=== PATIENT | male | born 1970 | race American Indian/Alaskan Native ===

== ENCOUNTER 2017-12-11 09:06 | Emergency (ER) | payer SELFPAY ==
[2017-12-11 09:47] VITALS: BP 141/80
--- NOTE | 2017-12-11 11:30 | Emergency Department Report ---
ED Extremity Problem HPI - General Chief complaint: Extremity Injury, Lower Stated complaint: FOOT SWELLING/PAIN Time Seen by Provider: 12/11/17 11:20 Source: patient Mode of arrival: Ambulatory Limitations: No Limitations - History of Present Illness Initial comments: This is a 47-year-old male here report that he has a cut flareup to his left foot is having pain and swelling for the last 2 days. Patient said he has a history of same. He is eating over the last 3 days red beans, pizza, beer and some seafood. Pain is 9 out of 10 in a can, throbbing. Reports some redness to the his great toe. Pain is constant. No alleviating factors. MD Complaint: extremity pain, extremity swelling Onset/Timin -: days(s) Location: left, lower extremity (left foot) History of Same: Yes -: No myalgia, Yes arthralgia, No fever, No associated dyspnea, No associated chest pain Severity scale (0 -10): 9 Quality: aching, constant, other (throbbing) Consistency: constant Improves with: nothing Worsens with: weight bearing, walking, exertion, palpation Associated Symptoms: arthralgias. denies: chest pain, shortness of breath, fever, myalgias, rash - Related Data Previous Rx's Medication Instructions Recorded Last Taken Type Acetaminophen/Codeine [Tylenol 1 tab PO Q6H PRN #14 tab 12/11/17 Unknown Rx /Codeine # 3 tab] Colchicine 0.6 mg PO BID PRN #12 tablet 12/11/17 Unknown Rx Ibuprofen [Motrin] 800 mg PO Q8HR PRN #15 tablet 12/11/17 Unknown Rx methylPREDNISolone [Medrol Dose 4 mg PO DAILY #1 tab.ds.pk 12/11/17 Unknown Rx Tristen] Allergies Allergy/AdvReac Type Severity Reaction Status Date / Time No Known Allergies Allergy Unverified 12/11/17 09:45 ED Review of Systems ROS: Stated complaint: FOOT SWELLING/PAIN Other details as noted in HPI Comment: All other systems reviewed and negative Constitutional: denies: chills, fever ENT: denies: ear pain, throat pain, epistaxis, congestion Respiratory: denies: cough, shortness of breath, SOB with exertion, SOB at rest , stridor, wheezing Cardiovascular: denies: chest pain, palpitations, dyspnea on exertion, edema, syncope, paroxysmal nocturnal dyspnea Gastrointestinal: denies: abdominal pain, nausea, vomiting Genitourinary: denies: hematuria Musculoskeletal: joint swelling, arthralgia. denies: back pain, myalgia Skin: denies: rash Neurological: denies: headache, weakness, numbness, paresthesias, confusion, abnormal gait, vertigo ED Past Medical Hx - Past Medical History Previous Medical History?: Yes Additional medical history: gout - Surgical History Past Surgical History?: No - Family History Family history: hypertension - Social History Smoking Status: Never Smoker Substance Use Type: None - Medications Home Medications: Home Medications Medication Instructions Recorded Confirmed Last Taken Type Acetaminophen/Codeine [Tylenol 1 tab PO Q6H PRN #14 tab 12/11/17 Unknown Rx /Codeine # 3 tab] Colchicine 0.6 mg PO BID PRN #12 tablet 12/11/17 Unknown Rx Ibuprofen [Motrin] 800 mg PO Q8HR PRN #15 tablet 12/11/17 Unknown Rx methylPREDNISolone [Medrol Dose 4 mg PO DAILY #1 tab.ds.pk 12/11/17 Unknown Rx Tristen] ED Physical Exam - General Limitations: No Limitations General appearance: alert, in no apparent distress - Head Head exam: Present: atraumatic, normocephalic, normal inspection - Expanded Head Exam Expanded Head exam: Absent: laceration, abrasion, contusion, hematoma, racoon eyes, cast's sign, general tenderness, tenderness of temporal artery, CSF rhinorrhea , CSF otorrhea - Eye Eye exam: Present: normal appearance, PERRL, EOMI. Absent: nystagmus, periorbital swelling, periorbital tenderness Pupils: Present: normal accommodation - ENT ENT exam: Present: normal exam, normal orophraynx, mucous membranes moist, TM's normal bilaterally, normal external ear exam - Neck Neck exam: Present: normal inspection, full ROM, other (no C-spine tenderness). Absent: tenderness, lymphadenopathy - Respiratory Respiratory exam: Present: normal lung sounds bilaterally. Absent: respiratory distress, chest wall tenderness - Cardiovascular Cardiovascular Exam: Present: regular rate, normal rhythm, normal heart sounds. Absent: systolic murmur, diastolic murmur - GI/Abdominal GI/Abdominal exam: Present: soft, normal bowel sounds. Absent: distended, tenderness, guarding, rebound, rigid, organomegaly - Extremities Exam Extremities exam: Present: normal inspection, full ROM, normal capillary refill , other. Absent: tenderness, pedal edema, joint swelling, calf tenderness - Expanded Lower Extremity Exam Left Hip exam: Present: normal inspection, full ROM, pelvic stability. Absent: tenderness, swelling, abrasion, laceration, ecchymosis, deformity, crepidus, dislocation, erythema, external rotation, internal rotation, shortening Upper Leg exam: Present: normal inspection, full ROM. Absent: tenderness, swelling, abrasion, laceration, ecchymosis, deformity, crepidus, dislocation, erythema Knee exam: Present: normal inspection, full ROM, full knee extension. Absent: tenderness, swelling, abrasion, laceration, ecchymosis, deformity, crepidus, dislocation, erythema, effusion, pain w/ pronation/supination, posterior draw sign, pain/laxity with valgus, pain/laxity with varus Lower Leg exam: Present: normal inspection, full ROM. Absent: tenderness, swelling, abrasion, laceration, ecchymosis, deformity, crepidus, dislocation, erythema, palpable cord, Adiel's sign Ankle exam: Present: normal inspection, full ROM. Absent: tenderness, swelling , abrasion, laceration, ecchymosis, deformity, crepidus, dislocation, erythema, anterior draw sign Foot/Toe exam: Present: full ROM (full range of motion but pain with dorsiflexion and plantar flexion), tenderness (tender to palpate dorsal aspects first defect in the distal metatarsal bone area), swelling, erythema (distal metatarsal bone first second and third metatarsal). Absent: normal inspection, abrasion, laceration, ecchymosis, deformity, crepidus, dislocation, amputation, puncture wound, foreign body, calcaneal tenderness, tenderness at base of 5th metatarsal, nail avulsion, subungual hematoma Neuro vascular tendon exam: Present: no vascular compromise, significant pain with passive ROM of distal joint. Absent: pulse deficit, abnormal cap refill, motor deficit, sensory deficit, tendon deficit, extremity cold to touch, pallor , abnormal 2-point discrimination, decreased fine/light touch, foot drop, peroneal nerve deficit Gait: Positive: observed and limited by pain - Back Exam Back exam: Present: normal inspection, full ROM, other (ambulates without any difficulties). Absent: tenderness, CVA tenderness (R), CVA tenderness (L), muscle spasm, paraspinal tenderness, vertebral tenderness, rash noted - Neurological Exam Neurological exam: Present: alert, oriented X3, normal gait, reflexes normal. Absent: motor sensory deficit - Psychiatric Psychiatric exam: Present: normal affect, normal mood - Skin Skin exam: Present: warm, dry, intact, normal color. Absent: rash ED Course Vital Signs 12/11/17 09:46 Temperature 99.1 F Pulse Rate 80 Respiratory 18 Rate Blood Pressure 141/80 O2 Sat by Pulse 98 Oximetry - Reevaluation(s) Reevaluation #1: 12/11/17 11:42 Patient received Decadron 10 mg IM and Toradol 60 mg IM in emergency room for pain. ED Medical Decision Making - Medical Decision Making This is a 47-year-old male here for gout flareup due eating high purine food over the weekend. This patient was seen and examined by myself and physical exam is normal except he has left foot tenderness, erythema and painful with weightbearing to first second and third metatarsal bone area distally. He is able to ambulate without any difficulties. Patient has classic signs of gout flareup due to eat and seafood, drinking beer and pizza over the weekend. I gave the patient Decadron 10 mg IM and Toradol 60 mg IM in emergency room and upper reevaluation he says his pain is better. I discussed with patient the consequences of eating high purine food. He voiced understanding. Patient vital signs stable afebrile and discharged home in stable condition with prescription for colchicine, Motrin, prednisone Dosepak and Tylenol 3. Critical care attestation.: If time is entered above; I have spent that time in minutes in the direct care of this critically ill patient, excluding procedure time. ED Disposition Clinical Impression: Gout attack Qualifiers: Gout site: foot Gout etiology: unspecified cause Laterality: left Qualified Code(s): M10.9 - Gout, unspecified Disposition: TO HOME OR SELFCARE Is pt being admited?: No Does the pt Need Aspirin: No Condition: Stable Instructions: Acute Gouty Arthritis (ED), Low Purine Diet (ED) Additional Instructions: Please follow up with primary care as recommended Increase fluid intake Take medication as prescribed . please do not drive or operate heavy machinery while taking Tylenol No. 3 as this medication causes drowsiness See discharge instruction on low Purine diet Referrals: PRIMARY CARE, [Primary Care Provider] - 2-3 Days Forms: Work/School Release Form(ED)
[2017-12-11] MEDS ORDERED: COLCHICINE PO ONE (11:31)
[2017-12-11] MEDS ORDERED: DECADRON IM ONE (11:31)
[2017-12-11] MEDS ORDERED: TORADOL IM ONE (11:31)
== END 2017-12-11 12:19 | disposition home or self-care (01) ==
LOC: ED 09:06
DX: M10.9 Gout, unspecified (principal)
CPT/HCPCS: 96372; 99282; J1100; J1885

== ENCOUNTER 2021-08-12 03:28 | Emergency (ER) | payer OTHER ==
[2021-08-12 03:57] LABS: Basophils # (Auto) 0.1 K/mm3 (0.0-0.1); Basophils % (Auto) 0.7 % (0.0-1.8); Eosinophils # (Auto) 0.1 K/mm3 (0.0-0.4); Eosinophils % (Auto) 1.1 % (0.0-4.3); Hematocrit 40.4 % (35.5-45.6); Hemoglobin 13.5 gm/dl (11.8-15.2); Lymphocytes # (Auto) 3.1 K/mm3 (1.2-5.4); Lymphocytes % (Auto) 37.5 % (13.4-35.0); Mean Corpuscular HGB Conc 33 % (32-34); Mean Corpuscular Volume 89 fl (84-94); Monocytes # (Auto) 0.8 K/mm3 (0.0-0.8); Monocytes % (Auto) 10.3 % (0.0-7.3); Platelet Count 355 K/mm3 (140-440); Red Blood Count 4.55 M/mm3 (3.65-5.03); Red Cell Distribution Width 13.8 % (13.2-15.2)
[2021-08-12 04:20] LABS: Alanine Aminotransferase 40 units/L (7-56); Albumin 4.9 g/dL (3.9-5); BUN/Creatinine Ratio 14; Blood Urea Nitrogen 13 mg/dL (9-20); Calcium 9.6 mg/dL (8.4-10.2); Hemolysis Index 5
[2021-08-12 05:26] LABS: Bilirubin,Urine NEG (Negative); Blood,Urine SM (Negative); Color,Urine Yellow (Yellow); Mucus,Urine 1+ /HPF; Protein,Urine <15 mg/dL mg/dL (Negative); Urobilinogen,Urine < 2.0 mg/dL (<2.0)
[2021-08-12] MEDS ORDERED: KETOROLAC 30 MG/1 ML INJ IM ONE (05:41)
[2021-08-12] MEDS ORDERED: dexAMETHasone 20 MG/5 ML VIAL IM ONE (05:41)
[2021-08-12] MEDS ORDERED: diazePAM 5 MG TAB PO ONE (05:41)
--- NOTE | 2021-08-12 06:03 | Emergency Department Report ---
ED Back Pain/Injury HPI - General Chief Complaint: Back Pain/Injury Stated Complaint: BACK PAIN ON LT SIDE Source: patient Limitations: No Limitations - History of Present Illness Initial Comments: Patient is a 51-year-old -[place] male with past medical history of gout who presents to the ED with complaint of acute onset persistent nontraumatic low back pain for the last 1 week. Patient states that he has been taking [id number] medications with no relief. Patient states that the pain is especially worse with movement or when he lays down. Patient denies dysuria, urinary frequency and urgency, hematuria, traumatic injury, heavy lifting, fall, numbness and tingling or weakness of lower extremities bilaterally, fever, chills, abdominal pain, nausea and vomiting or diarrhea. MD Complaint: back pain (Low back pain) -: Sudden, week(s) (1) Similar Symptoms Previously: No Place: home Radiation: none Severity: severe Severity scale (0 -10): 7 Quality: sharp, aching Consistency: constant Improves With: none Worsens With: movement, walking Context: unknown Associated Symptoms: denies other symptoms. denies: confusion, weakness, chest pain, numbness, difficulty walking, difficulty urinating, diaphoresis, incontinence, fever/chills, constipation, headaches, abdominal pain, loss of appetite, malaise, nausea/vomiting, rash, seizure, shortness of breath, syncope - Related Data Previous Rx's Medication Instructions Recorded Last Taken Type Acetaminophen/Codeine [Tylenol 1 tab PO Q6H PRN #14 tab 12/11/17 Unknown Rx /Codeine # 3 tab] Colchicine 0.6 mg PO BID PRN #12 tablet 12/11/17 Unknown Rx Ibuprofen [Motrin] 800 mg PO Q8HR PRN #15 tablet 12/11/17 Unknown Rx methylPREDNISolone [Medrol Dose 4 mg PO DAILY #1 tab.ds.pk 12/11/17 Unknown Rx Tristen] Ibuprofen [Motrin] 800 mg PO Q8HR PRN #30 tablet 08/12/21 Unknown Rx methOCARBAMOL [Robaxin TAB] 750 mg PO Q8H PRN #30 tab 08/12/21 Unknown Rx Allergies Allergy/AdvReac Type Severity Reaction Status Date / Time No Known Allergies Allergy Unverified 12/11/17 09:45 ED Review of Systems ROS: Stated complaint: BACK PAIN ON LT SIDE Other details as noted in HPI Constitutional: denies: chills, fever Eyes: denies: eye pain, eye discharge, vision change ENT: denies: ear pain, throat pain Respiratory: denies: cough, shortness of breath, wheezing Cardiovascular: denies: chest pain, palpitations Endocrine: no symptoms reported Gastrointestinal: denies: abdominal pain, nausea, diarrhea Genitourinary: denies: urgency, dysuria Musculoskeletal: back pain (Low back pain). denies: joint swelling, arthralgia Skin: denies: rash, lesions Neurological: denies: headache, weakness, paresthesias Psychiatric: denies: anxiety, depression Hematological/Lymphatic: denies: easy bleeding, easy bruising ED Past Medical Hx - Past Medical History Additional medical history: gout - Social History Smoking Status: Never Smoker Substance Use Type: None - Medications Home Medications: Home Medications Medication Instructions Recorded Confirmed Last Taken Type Acetaminophen/Codeine [Tylenol 1 tab PO Q6H PRN #14 tab 12/11/17 Unknown Rx /Codeine # 3 tab] Colchicine 0.6 mg PO BID PRN #12 tablet 12/11/17 Unknown Rx Ibuprofen [Motrin] 800 mg PO Q8HR PRN #15 tablet 12/11/17 Unknown Rx methylPREDNISolone [Medrol Dose 4 mg PO DAILY #1 tab.ds.pk 12/11/17 Unknown Rx Tristen] Ibuprofen [Motrin] 800 mg PO Q8HR PRN #30 tablet 08/12/21 Unknown Rx methOCARBAMOL [Robaxin TAB] 750 mg PO Q8H PRN #30 tab 08/12/21 Unknown Rx ED Physical Exam - General Limitations: No Limitations General appearance: alert, in no apparent distress - Head Head exam: Present: atraumatic, normocephalic, normal inspection - Eye Eye exam: Present: normal appearance, PERRL, EOMI Pupils: Present: normal accommodation - ENT ENT exam: Present: normal exam, normal orophraynx, mucous membranes moist, TM's normal bilaterally, normal external ear exam - Neck Neck exam: Present: normal inspection, full ROM. Absent: tenderness - Respiratory Respiratory exam: Present: normal lung sounds bilaterally. Absent: respiratory distress, wheezes, rales, rhonchi, chest wall tenderness, accessory muscle use, decreased breath sounds, prolonged expiratory - Cardiovascular Cardiovascular Exam: Present: regular rate, normal rhythm, normal heart sounds. Absent: systolic murmur, diastolic murmur, rubs, gallop - GI/Abdominal GI/Abdominal exam: Present: soft, normal bowel sounds. Absent: tenderness, guarding, rebound, hyperactive bowel sounds, hypoactive bowel sounds, organomegaly - Extremities Exam Extremities exam: Present: normal inspection, full ROM, normal capillary refill. Absent: tenderness, pedal edema, joint swelling, calf tenderness - Back Exam Back exam: Present: normal inspection, full ROM, tenderness (Palpable lumbosacral paraspinal musculoskeletal tenderness), muscle spasm, paraspinal tenderness. Absent: CVA tenderness (R), CVA tenderness (L), vertebral tenderness - Neurological Exam Neurological exam: Present: alert, oriented X3, CN II-XII intact, normal gait, reflexes normal - Psychiatric Psychiatric exam: Present: normal affect, normal mood - Skin Skin exam: Present: warm, dry, intact, normal color. Absent: rash ED Course Vital Signs 08/12/21 03:32 Temperature 98.6 F Pulse Rate 92 H Respiratory 18 Rate Blood Pressure 174/87 O2 Sat by Pulse 96 Oximetry ED Medical Decision Making - Lab Data Result diagrams: 08/12/21 03:44 08/12/21 03:44 - Medical Decision Making This is a 51-year-old -[place] male with past medical history of gout who presents to the ED with complaint of acute onset persistent nontraumatic low back pain for the last 1 week. Patient states that he has been taking [id number] medications with no relief. Patient states that the pain is especially worse with movement or when he lays down. In the ED, patient is alert and oriented x3 and is not in any distress. Patient is hemodynamically stable. Lab test results were reviewed and are all nonactionable. Patient was treated for pain in the ED and observed. On reevaluation, patient's pain is well controlled medication. Patient symptoms are likely musculoskeletal. Patient was therefore discharged home on medications for pain and advised to follow-up with his primary care physician in 7 to 10 days for reevaluation or return to the ED immediately if symptoms get worse. - Differential Diagnosis Muscle spasm; muscle strain; Critical care attestation.: If time is entered above; I have spent that time in minutes in the direct care of this critically ill patient, excluding procedure time. ED Disposition Clinical Impression: Spasm of muscle of lower back, Strain of muscle, fascia and tendon of lower back, initial encounter Acute low back pain without sciatica Qualifiers: Back pain laterality: unspecified Qualified Code(s): M54.50 - Low back pain, unspecified Disposition: HOME / SELF CARE / HOMELESS Is pt being admited?: No Does the pt Need Aspirin: No Condition: Stable Instructions: Muscle Cramps and Spasms, [id number], Muscle Strain, [id number], Low Back Sprain or Strain Rehab-SportsMed Additional Instructions: Lab test results were reviewed and are all nonactionable. Therefore your symptoms are likely musculoskeletal. So take pain medications as needed with food, drink plenty of fluids and follow-up with your primary care physician in 7 to 10 days for reevaluation. Return to the ED immediately if symptoms get worse. Prescriptions: Ibuprofen [Motrin] 800 mg PO Q8HR PRN #30 tablet PRN Reason: Pain , Severe (7-10) methOCARBAMOL [Robaxin TAB] 750 mg PO Q8H PRN #30 tab PRN Reason: Muscle Spasm Referrals: [facility] [Provider Group] - 7-10 days Forms: Work/School Release Form(ED) Time of Disposition: 06:04 Print Language: CAMEROONIAN
[2021-08-12 06:40] VITALS: BP 170/86
== END 2021-08-12 06:38 | disposition home or self-care (01) ==
LOC: ED 03:28
DX: S39.012A Strain of muscle, fascia and tendon of lower back, initial encounter (principal); M54.42 Lumbago with sciatica, left side; M10.9 Gout, unspecified; Z79.899 Other long term (current) drug therapy; X58.XXXA Exposure to other specified factors, initial encounter; Y93.89 Activity, other specified; Y92.89 Other specified places as the place of occurrence of the external cause; Y99.8 Other external cause status
CPT/HCPCS: 36415; 80053; 81001; 85025; 96372; 99283; J1100; J1885